=== PATIENT | male | born 1990 | race Hispanic/Latino ===

== ENCOUNTER 2017-07-07 07:24 | Emergency (ER) | payer OTHER, MEDICAID ==
[~2017-07-07] VITALS: Ht 185.4 cm; Wt 158.8 kg
[2017-07-07] MEDS ORDERED: MAPAP500 MG PO (07:41)
[2017-07-07] MEDS ORDERED: OXYCONTIN10 MG PO (07:41)
== END 2017-07-07 08:45 | disposition home or self-care (01) ==
LOC: ED 07:24
DX: S56.911A Strain of unspecified muscles, fascia and tendons at forearm level, right arm, initial encounter (principal); Y93.89 Activity, other specified; Y92.69 Other specified industrial and construction area as the place of occurrence of the external cause; Z88.1 Allergy status to other antibiotic agents; Z88.8 Allergy status to other drugs, medicaments and biological substances; Z79.899 Other long term (current) drug therapy; X50.0XXA Overexertion from strenuous movement or load, initial encounter
CPT/HCPCS: 99282